=== PATIENT | male | born 1965 | race Caucasian/White ===

== ENCOUNTER 2017-12-15 07:28 | Emergency (ER) | payer OTHER ==
[2017-12-15 08:23] LABS: BASO # 0.1 10^3/uL (0.0-0.2); BASO % 0.5 % (0.0-1.0); EOS # 0.1 10^3/uL (0.0-0.50); EOS % 0.4 % (0.0-3.0); HEMATOCRIT 45.2 % (42.0-52.0); HEMOGLOBIN 15.4 g/dl (13.5-17.5); IMMATURE GRANULOCYTE % 0.4 % (0-3.0); LYMPH # 1.2 10^3/uL (1.5-4.5); LYMPH % 8.7 % (24.0-44.0); MEAN CORPUSCULAR HEMOGLOBIN 30.1 pg (27.0-33.0); MEAN CORPUSCULAR HGB CONC 34.1 g/dl (32.0-36.5); MEAN CORPUSCULAR VOLUME 88.5 fl (80.0-96.0); MONO # 0.8 10^3/uL (0.0-0.8); MONO % 5.9 % (0.0-5.0); NEUTROPHILS # 11.4 10^3/uL (1.8-7.7); NEUTROPHILS % 84.1 % (36.0-66.0); PLATELET COUNT, AUTOMATED 228 10^3/uL (150-450); RED BLOOD COUNT 5.11 10^6/uL (4.30-6.10); RED CELL DISTRIBUTION WIDTH 12.8 % (11.5-14.5); WHITE BLOOD COUNT 13.6 10^3/uL (4.0-10.0)
[2017-12-15] MEDS: NS 1,000 ML IV (08:29)
[2017-12-15 08:35] LABS: ALBUMIN 3.7 GM/DL (3.2-5.2); ALBUMIN/GLOBULIN RATIO 0.93 (1.00-1.93); ALKALINE PHOSPHATASE 59 U/L (45-117); ALT/SGPT 30 U/L (12-78); ANION GAP 7 MEQ/L (8-16); AST/SGOT 13 U/L (7-37); BILIRUBIN,TOTAL 1.2 MG/DL (0.2-1.0); BLOOD UREA NITROGEN 9 MG/DL (7-18); CALCIUM LEVEL 8.8 MG/DL (8.5-10.1); CARBON DIOXIDE LEVEL 26 MEQ/L (21-32); CHLORIDE LEVEL 107 MEQ/L (98-107); CREATININE FOR GFR 1.05 MG/DL (0.70-1.30); GLOMERULAR FILTRATION RATE > 60.0 (>56); GLUCOSE, FASTING 108 MG/DL (70-100); LIPASE 141 U/L (73-393); POTASSIUM SERUM 3.9 MEQ/L (3.5-5.1); SODIUM LEVEL 140 MEQ/L (136-145); TOTAL PROTEIN 7.7 GM/DL (6.4-8.2)
[2017-12-15] MEDS ORDERED: ISOVUE-370 76% 100ML VIAL (Q9967) As Ordered (08:49)
[2017-12-15 09:05] LABS: BILIRUBIN,DIRECT 0.3 MG/DL (0.0-0.2)
[2017-12-15 09:26] LABS: KETONE, URINE AUTO RFX NEGATIVE (NEGATIVE); LEUKOCYTE ESTERASE UR AUTO RFX NEGATIVE (NEGATIVE); NITRITE, URINE AUTO RFX NEGATIVE (NEGATIVE); RBC, URINE AUTO RFX 5 /HPF (0-3); SQUAM EPITHELIAL CELL UR AURFX 0 /HPF (0-6); WBC, URINE AUTO RFX 0 /HPF (0-3)
[2017-12-15] MEDS: metroNIDAZOLE (FLAGYL) 500 MG TAB PO (09:51)
[2017-12-15] MEDS: CIPROFLOXACIN 500 MG TAB PO (09:51)
== END 2017-12-15 10:00 | disposition home or self-care (01) ==
LOC: M ED 07:28
DX: K57.32 Diverticulitis of large intestine without perforation or abscess without bleeding (principal); B02.9 Zoster without complications; M47.816 Spondylosis without myelopathy or radiculopathy, lumbar region; M43.16 Spondylolisthesis, lumbar region
CPT/HCPCS: Q9967

== ENCOUNTER → 2018-12-01 | Outpatient (REF) | payer OTHER ==
[~2018-12-01] MED LIST: CIPR-249 PO; FLAG500T PO; ZOFR4TAB14 PO
[2018-12-01 19:42] LABS: BASO # 0.1 10^3/uL (0.0-0.2); BASO % 1.3 % (0.0-1.0); EOS # 0.1 10^3/uL (0.0-0.5); EOS % 1.9 % (0.0-3.0); HEMATOCRIT 47.1 % (42.0-52.0); HEMOGLOBIN 16.1 g/dl (13.5-17.5); LYMPH # 1.9 10^3/uL (1.5-5.0); LYMPH % 27.4 % (24.0-44.0); MEAN CORPUSCULAR HEMOGLOBIN 30.1 pg (27.0-33.0); MEAN CORPUSCULAR HGB CONC 34.2 g/dl (32.0-36.5); MONO # 0.5 10^3/uL (0.0-0.8); MONO % 6.5 % (0.0-5.0); NEUTROPHILS # 4.3 10^3/uL (1.5-8.5); NEUTROPHILS % 62.6 % (36.0-66.0); PLATELET COUNT, AUTOMATED 234 10^3/uL (150-450); RED BLOOD COUNT 5.35 10^6/uL (4.30-6.10); WHITE BLOOD COUNT 6.9 10^3/uL (4.0-10.0)
[2018-12-01 19:56] LABS: ALBUMIN 4.2 GM/DL (3.2-5.2); ALT/SGPT 31 U/L (12-78); BILIRUBIN,TOTAL 0.9 MG/DL (0.2-1.0); BLOOD UREA NITROGEN 13 MG/DL (7-18); CALCIUM LEVEL 9.1 MG/DL (8.5-10.1); CARBON DIOXIDE LEVEL 24 MEQ/L (21-32); CHLORIDE LEVEL 108 MEQ/L (98-107); CHOLESTEROL LEVEL 240 MG/DL (<200); CHOLESTEROL RISK RATIO 4.444 (<5); CREATININE FOR GFR 0.97 MG/DL (0.70-1.30); GLOMERULAR FILTRATION RATE > 60.0 (>56); GLUCOSE, FASTING 88 MG/DL (70-100); HDL CHOLESTEROL 54 MG/DL (>40); LDL CHOLESTEROL 161 MG/DL (<100); NON-HDL-C 186 MG/DL; POTASSIUM SERUM 4.1 MEQ/L (3.5-5.1); PROSTATIC SPECIFIC AG MONITOR 0.68 NG/ML (< 4.00); SODIUM LEVEL 141 MEQ/L (136-145); TOTAL PROTEIN 7.6 GM/DL (6.4-8.2); TRIGLYCERIDES LEVEL 124 MG/DL (<150)
== END ==
LOC: M LAB REF 18:55
PROVIDERS: ATTEND Family Medicine
DX: K57.90 Diverticulosis of intestine, part unspecified, without perforation or abscess without bleeding (principal); Z82.3 Family history of stroke; Z80.42 Family history of malignant neoplasm of prostate; K40.90 Unilateral inguinal hernia, without obstruction or gangrene, not specified as recurrent; E78.49 Other hyperlipidemia; Z00.00 Encounter for general adult medical examination without abnormal findings

== ENCOUNTER → 2019-01-01 | Outpatient (CLI) | payer OTHER ==
--- NOTE | 2019-01-03 09:53 | ECGEPIP ---
[facility] Test Date: 2019-01-01 Pat Name: SARAHI REYEZ Department: Room: - Gender: Male Catering Chef: NARGIS : 1965 Requested By: Checo Perales Order Number: [id number] Reading MD: Amaury Jauregui Measurements Intervals [place] Rate: 57 P: 37 [place]: 177 QRS: 25 QRSD: 93 T: 32 QT: 389 QTc: 380 Interpretive Statements SINUS BRADYCARDIA NO PRIOR Electronically Signed on 01-03-2019 9:53:00 EDT by Amaury Jauregui
== END ==
LOC: M EKG 09:28
PROVIDERS: ATTEND Anesthesiology
DX: Z01.818 Encounter for other preprocedural examination (principal)

== ENCOUNTER 2019-01-06 07:46 | Day surgery (SDC) | payer OTHER ==
[~2019-01-06] VITALS: Ht 175.3 cm; Wt 88.9 kg
[~2019-01-06 07:46] MED LIST changes: +LR 1,000 ML IV ONE; +ceFAZolin SOD 1 GM in D5W MINI-BAG PLUS 50 ML IV ONE
[2019-01-06] MEDS ORDERED: LACRILUBE (AKWA TEARS) OPHTH OINT 3.5 GM As Ordered ONE (08:26)
[2019-01-06] MEDS ORDERED: ROCURONIUM BROMIDE 50 MG/5 ML VIAL As Ordered ONE ×2 (08:29→10:27)
[2019-01-06] MEDS ORDERED: dexameTHASONE 4 MG/ML 1ML VIAL (J1100) As Ordered ONE (08:29)
[2019-01-06] MEDS ORDERED: LIDOCAINE 2% INJ 100 MG/5 ML SDV (FOR ANES.) As Ordered ONE (08:29)
[2019-01-06] MEDS ORDERED: ONDANSETRON 4MG/2ML VIAL (J2405) As Ordered ONE (08:29)
[2019-01-06] MEDS ORDERED: PROPOFOL 200 MG/20 ML VIAL As Ordered ONE (08:29)
[2019-01-06] MEDS ORDERED: MIDAZOLAM INJ 2 MG/2 ML VIAL (J2250) As Ordered ONE (08:32)
[2019-01-06] MEDS ORDERED: fentaNYL 100 MCG/2 ML INJECTION (J3010) As Ordered ONE ×2 (08:32→10:05)
[2019-01-06] MEDS ORDERED: BUPIVACAINE/EPIN 0.25% 30 ML VIAL As Ordered ONE (09:37)
[2019-01-06] MEDS ORDERED: KETOROLAC 60 MG/2 ML VIAL (J1885) As Ordered ONE (10:14)
[2019-01-06] MEDS ORDERED: SUGAMMADEX SODIUM 500 MG/5 ML VIAL (BRIDION) As Ordered ONE (10:14)
[2019-01-06] MEDS ORDERED: KETAMINE HCL 200 MG/20 ML VIAL As Ordered ONE (10:34)
[2019-01-06] MEDS ORDERED: ACETAMINOPHEN 1000MG 100ML IV BTL (OFIRMEV) (J0131 PER 10MG) As Ordered ONE (10:35)
--- NOTE | 2019-01-06 11:53 | RO ---
DATE OF PROCEDURE: 01/06/2019 PREOPERATIVE DIAGNOSIS: Left inguinal hernia. POSTOPERATIVE DIAGNOSIS: Left inguinal hernia (indirect), and right inguinal hernia (direct). SURGEON: Jung Urbina MD PAY AGENT: Soha Olmos NP. Provided instrument exchange, trocar placement and removal, abdominal wall closure, and mesh placement. ANESTHESIA: General endotracheal anesthesia. PROCEDURE: Robotic-assisted laparoscopic bilateral inguinal hernia repair with ProGrip mesh. ESTIMATED BLOOD LOSS: Minimal. FLUIDS: Crystalloid. DESCRIPTION OF PROCEDURE: The patient was taken to recovery room awake, alert hemodynamic stable. The patient was given general anesthesia and after adequate anesthesia and preoperative antibiotics were given, the patient was prepped and draped in a sterile fashion. Next, a supraumbilical incision was made with skin knife. Blunt dissection was carried down to fascia. Fascia was entered with a Veress needle, insufflated to 15 mm of pressure a dilating 8 mm trocar was placed. Under direct visualization, two lateral 8 mm trocars were placed. The patient was placed in the Trendelenburg position and there were a great deal of adhesions from previous diverticulitis in the left lower quadrant, which were taken down with sharp dissection. Then the peritoneum on the left-hand side was taken down with monopolar scissors after the robot had been docked. In addition, during evaluation, there was an obvious indirect component on the left-hand side, which was reduced and then also a direct component on the right-hand side medial to the epigastric. Thus, the left inguinal area was dissected out with the peritoneum bluntly and eventually this was mobilized out of the inguinal canal. There was also lipoma in the cord that was mobilized and transected at its base left in the preperitoneal space after reinspection. Next, the right inguinal area was dissected out after the Cedrick's ligament on the left-hand side pubis and the vessels were all cleared of peritoneum. The right inguinal area was dissected out first with monopolar cut scissors on the peritoneum, mobilizing a nice peritoneal flap. Once again, there is no evidence of indirect hernia, but there was evidence of a direct hernia. This was relatively small but was mobilized with some blunt dissection and then Cedrick's ligament pubis was seen from the right-hand side. The vessels were nicely seen as well. The mesh was placed in the preperitoneal space on the right-hand side, pressed into position, covering the direct component, as well as the indirect component. The left side was also placed the mesh at this time, covering mostly the indirect component more so than the direct, but both areas were covered nicely. The peritoneum was closed using 3-0 V-Loc on both sides and sutures removed. The abdomen was desufflated after trocars removed under direct visualization. 4-0 Vicryl was used to close all skin incisions. Steri-Strips and a dry sterile dressing were applied. The patient was awakened, extubated, brought to recovery room awake, alert, hemodynamically stable. Sponge and needle counts correct times two.
[2019-01-06] MEDS ORDERED: fentaNYL 100 MCG/2 ML INJECTION (J3010) IV PRN (12:00)
[2019-01-06] MEDS ORDERED: oxyCODONE 5MG TAB PO PRN (12:00)
[2019-01-06] MEDS ORDERED: ONDANSETRON 4MG/2ML VIAL (J2405) IV PRN ×2 (12:00→12:15)
[2019-01-06] MEDS ORDERED: LR 1,000 ML IV SCH ×2 (12:00)
[2019-01-06] MEDS ORDERED: NORCO, ANEXSIA 5/325MG TABLET (HYDROcodone/ACETAMINOPHEN) PO PRN (12:15)
[2019-01-06 14:11] VITALS: BP 134/74
== END 2019-01-06 14:55 | disposition home or self-care (01) ==
LOC: M SDC 07:46
PROVIDERS: ATTEND Surgery
DX: K40.90 Unilateral inguinal hernia, without obstruction or gangrene, not specified as recurrent (principal); K57.92 Diverticulitis of intestine, part unspecified, without perforation or abscess without bleeding; K21.9 Gastro-esophageal reflux disease without esophagitis; K44.9 Diaphragmatic hernia without obstruction or gangrene
CPT/HCPCS: 49650; C1781; J0131; J0690; J1100; J1885; J2250; J2405; J3010

== ENCOUNTER → 2020-06-02 | Outpatient (CLI) | payer BC ==
[~2020-06-02] MED LIST changes: +GASTROGRAFIN SOLUTION 30ML (Q9963) As Ordered ONE; +ISOVUE-370 76% 100ML VIAL As Ordered ONE; -LR 1,000 ML IV ONE; -ceFAZolin SOD 1 GM in D5W MINI-BAG PLUS 50 ML IV ONE
--- NOTE | 2020-06-02 16:02 | REP ---
INDICATION: LLQ PAIN. COMPARISON: None TECHNIQUE: Axial contrast-enhanced images from the lung bases to the pubic symphysis using oral and 100 cc Isovue 370 intravenous contrast material. Precontrast images of the abdomen along with coronal and sagittal reformations obtained. This CT examination was performed using the following dose reduction techniques: Automated exposure control, adjustment of mA and/or kv according to the patient's size, and the use of iterative reconstruction technique. FINDINGS: Fatty infiltration to the liver noted without focal hepatic lesion. Spleen, pancreas, gallbladder, bilateral adrenal glands and kidneys are normal. The enteric system including stomach, small, and large bowel appears normal. No evidence for obstruction or acute inflammatory process. Normal terminal ileum and appendix are identified in the right lower quadrant. Sigmoid diverticula noted without acute diverticulitis. Pelvis demonstrates normal bladder and age-appropriate prostate/seminal vesicles. No ascites. No free air. No intraperitoneal or retroperitoneal adenopathy. Abdominal aorta and vasculature appear normal. Musculoskeletal structures are intact and without acute osseous abnormality. Lung bases are clear. IMPRESSION: No acute abdominopelvic pathology appreciated. Diverticulosis without acute diverticulitis. Hepatosteatosis. <Electronically signed by Boy Oh > 06/02/20 [id number]
== END ==
LOC: M RAD 14:05
PROVIDERS: ATTEND Surgery
DX: K76.0 Fatty (change of) liver, not elsewhere classified (principal); R10.32 Left lower quadrant pain
CPT/HCPCS: 74178; Q9963; Q9967

== ENCOUNTER → 2020-07-13 | Outpatient (CLI) | payer BC ==
[~2020-07-13] MED LIST changes: -GASTROGRAFIN SOLUTION 30ML (Q9963) As Ordered ONE; -ISOVUE-370 76% 100ML VIAL As Ordered ONE
--- NOTE | 2020-07-13 20:47 | ECGEPIP ---
[facility] Test Date: 2020-07-13 Pat Name: SARAHI REYEZ Department: Room: - Gender: Male Booking Agent: JAYA : 1965 Requested By: DANTE Grant Order Number: [id number] Reading MD: Amaury Jauregui Measurements Intervals [place] Rate: 76 P: 42 [place]: 172 QRS: 26 QRSD: 78 T: 45 QT: 374 QTc: 420 Interpretive Statements SINUS RHYTHM NO CHANGE COMPARED TO 01/01/19 Electronically Signed on 07-13-2020 20:47:27 EDT by Amaury Jauregui
== END ==
LOC: M EKG 15:20
PROVIDERS: ATTEND Anesthesiology
DX: Z01.818 Encounter for other preprocedural examination (principal)

== ENCOUNTER → 2020-07-13 | Outpatient (CLI) | payer BC ==
--- NOTE | 2020-07-13 15:25 | REP ---
INDICATION: THORACIC RADICULOPATHY. COMPARISON: None. TECHNIQUE: Sagittal T1, T2, stir, axial T1 and T2 weighted MR images of the thoracic spine are obtained. FINDINGS: There is [id number] multilevel degenerative disc disease with loss of disc height and disc desiccation seen diffusely throughout the thoracic spine. Vertebral heights are overall preserved. No malalignments. On the sagittal T2 weighted images, no limiting canal stenosis. The thoracic cord appears normal in its course, caliber and signal characteristics. On the review of axial images, no significant canal or foraminal narrowing or disc herniation identified. IMPRESSION: Normal examination of the thoracic spine. No fracture or malalignment. No significant canal stenosis or limiting foraminal stenosis. No disc herniation identified. <Electronically signed by Zaheer Faulkner > 07/13/20 1525
== END ==
LOC: M PLARAD 13:27
PROVIDERS: ATTEND Orthopaedic Surgery
DX: M54.14 Radiculopathy, thoracic region (principal)

== ENCOUNTER → 2020-07-17 | Outpatient (CLI) | payer BC | LOC: M LABSMTC 10:04 | PROVIDERS: ATTEND Anesthesiology | DX: Z01.818 Encounter for other preprocedural examination (principal); Z11.52 Encounter for screening for COVID-19 ==

== ENCOUNTER 2020-07-22 11:07 | Day surgery (SDC) | payer BC ==
[~2020-07-22] VITALS: Ht 175.3 cm; Wt 84.8 kg
[~2020-07-22 11:07] MED LIST changes: +LIDOCAINE 1% MDV 20ML VIAL SQ PRN; +LR 1,000 ML IV ONE; +ceFAZolin SOD 2 GM in IV 1 EA IV ONE
[2020-07-22] MEDS ORDERED: fentaNYL 250 MCG/5 ML INJECTION (J3010) As Ordered ONE (12:23)
[2020-07-22] MEDS ORDERED: MIDAZOLAM INJ 2MG/2ML VIAL (J2250 PER 1MG) As Ordered ONE (12:23)
[2020-07-22] MEDS ORDERED: LIDOCAINE 2% 100MG/5ML SDV (FOR ANES.) As Ordered ONE (12:24)
[2020-07-22] MEDS ORDERED: propofoL 200 MG/20 ML VIAL As Ordered ONE (12:24)
[2020-07-22] MEDS ORDERED: KETOROLAC 60MG 2ML VIAL As Ordered ONE (12:24)
[2020-07-22] MEDS ORDERED: dexameTHASONE 4 MG/ML 1ML VIAL (J1100 PER 1MG) As Ordered ONE (12:24)
[2020-07-22] MEDS ORDERED: ONDANSETRON 4MG/2ML VIAL As Ordered ONE (12:24)
[2020-07-22] MEDS ORDERED: ROCURONIUM BROMIDE 50 MG/5 ML VIAL As Ordered ONE ×2 (12:24→13:43)
[2020-07-22] MEDS ORDERED: BUPIVACAINE/EPIN 0.25% 30 ML VIAL As Ordered ONE (12:56)
[2020-07-22] MEDS ORDERED: ACETAMINOPHEN 1000MG 100ML IV BTL (OFIRMEV) (J0131 PER 10MG) As Ordered ONE (13:38)
[2020-07-22] MEDS ORDERED: SUGAMMADEX SODIUM 500 MG/5 ML VIAL (BRIDION) As Ordered ONE (13:41)
[2020-07-22] MEDS ORDERED: GLYCOPYRROLATE INJ 0.2 MG/ML 2 ML VIAL As Ordered ONE (13:49)
[2020-07-22] MEDS ORDERED: fentaNYL 100 MCG/2 ML INJECTION (J3010) As Ordered ONE (16:11)
[2020-07-22] MEDS ORDERED: LR 1,000 ML IV SCH ×2 (16:15→16:20)
[2020-07-22] MEDS ORDERED: ONDANSETRON 4MG/2ML VIAL IV PRN (16:15)
[2020-07-22] MEDS ORDERED: fentaNYL 100 MCG/2 ML INJECTION (J3010) IV PRN (16:15)
[2020-07-22] MEDS ORDERED: oxyCODONE 5MG TAB PO PRN (16:15)
[2020-07-22] MEDS ORDERED: NORCO, ANEXSIA 5/325MG TABLET (HYDROcodone/ACETAMINOPHEN) PO PRN (16:20)
[2020-07-22 17:50] VITALS: BP 126/81
[2020-07-22] MEDS ORDERED: KETOROLAC 30 MG/ML 1ML VIAL IV SCH (19:00)
[2020-07-22] MEDS ORDERED: HYDR-3715 PO (19:39)
--- NOTE | 2020-07-23 09:11 | RO ---
OPERATIVE NOTE DATE OF OPERATION: 07/22/2020 PREOPERATIVE DIAGNOSIS: Recurrent left inguinal hernia. POSTOPERATIVE DIAGNOSIS: Recurrent left inguinal hernia. PROCEDURE: Robotic-assisted left inguinal hernia repair with ProGrip mesh. SURGEON: Jnug Urbina Jr, MD LUMP RECEIVER: Soha Olmos (provided trocar placement, instrument exchange, mesh placement, abdominal wall closure). ANESTHESIA: General endotracheal anesthesia. EBL: Minimal. FLUIDS: Crystalloid. DESCRIPTION OF PROCEDURE: The patient was brought to the operating room and was given general anesthesia. After adequate anesthesia and preoperative antibiotics were given the patient was prepped and draped in usual sterile fashion. A supraumbilical incision was made with skin knife, blunt dissection was carried down to fascia and Veress needle placed into the abdominal cavity and insufflated to 15 mm of pressure. A dilating 8 mm trocar was placed and under direct visualization a right-sided 8 mm and left-sided 8 mm trocars were placed. The patient was placed in deep Trendelenburg position and the patient was evaluated in the pelvis and specifically the sigmoid colon was adherent to the left lower quadrant and there were some adhesions in the left lower quadrant where the patient had some previous diverticulitis episodes. At this point the adhesions were taken down to omentum up in this area and then the sigmoid colon was mobilized off the left inguinal area and it actually was right at the level of the internal ring where the sigmoid colon was adherent to. In any case, at this point, the colon was mobilized using sharp dissection as well as minimal blunt dissection. The colon itself needed to be mobilized off the pelvic sidewall in this area. Once this was performed I could see the mesh was intact, it was hard to tell whether there was a direct or indirect component but what was concerning me was that I did not see the mesh below the level of the internal ring and lateral to this, it may be that there would be thickened peritoneum and over the medial aspect I was not able to see the mesh and thus I felt that the preperitoneal approach was appropriate. Incision was made in the peritoneum and peritoneum mobilized using scissors and monopolar scissors as well as blunt dissection, sharp dissection, and eventually the peritoneum was mobilized off the mesh in this area. Specifically, medially and then along the mesh itself and eventually once this was nicely mobilized when I was able to make it down to the level of the internal ring and the cord structures there was a great deal of fatty tissue present and it was such that this was mobilized to some extent and I was appreciating a lipoma of the cord in this area and the mesh looked as though it had folded up on itself in this area consistent with what is called a taco type of situation. In any case, medial to the epigastrics, however, the mesh was down into the pelvis and along Cedrick's area. Once all of this area was dissected down nicely and two small lipomas of the cord were appreciated, then I was able to visualize relatively moderate size indirect hernia. No other hernias were appreciated. Thus a ProGrip mesh was cut to the appropriate size. Because of its problem with recurrence which was probably that the cord structures were elevating the mesh in this area, I then split the ProGrip mesh and placed this around the cord structures and this did cover the area nicely and then the peritoneum was closed over the top for this peritoneal closure. However, where the sigmoid colon had been mobilized there was enough of a peritoneal defect that it was not coming together well and I felt that it needed to be covered better and to avoid any bowel going into the preperitoneal space. Thus, I did suture the edge of the peritoneal rent down to the edge of the mesh and then placed some Interceed over the top of this. The trocars were then removed under direct visualization. 4-0 Vicryl was used to close all skin incisions. Steri-Strips and dry, sterile dressing was applied. The patient was awakened from his sedation and brought to the recovery room awake, alert and hemodynamically stable. Sponge and needle counts correct x2.
== END 2020-07-22 17:55 | disposition home or self-care (01) ==
LOC: M SDC 11:07
PROVIDERS: ATTEND Surgery
DX: K40.91 Unilateral inguinal hernia, without obstruction or gangrene, recurrent (principal); K21.9 Gastro-esophageal reflux disease without esophagitis; K57.92 Diverticulitis of intestine, part unspecified, without perforation or abscess without bleeding; K44.9 Diaphragmatic hernia without obstruction or gangrene
CPT/HCPCS: 49651; C1781; J0131; J0690; J1100; J1885; J2250; J2405; J3010; S2900

== ENCOUNTER 2021-07-29 10:50 | Emergency (ER) | payer BC ==
[~2021-07-29] VITALS: Ht 175.3 cm; Wt 86.6 kg
[~2021-07-29 10:50] MED LIST changes: +HYDR-3715 PO; -LIDOCAINE 1% MDV 20ML VIAL SQ PRN; -LR 1,000 ML IV ONE; -ceFAZolin SOD 2 GM in IV 1 EA IV ONE
[2021-07-29] MEDS ORDERED: NS 1,000 ML IV ONE (12:05)
[2021-07-29 13:05] LABS: BASO # 0.1 10^3/uL (0.0-0.2); BASO % 0.6 % (0.0-1.0); EOS # 0.1 10^3/uL (0.0-0.5); EOS % 1.1 % (0.0-3.0); HEMATOCRIT 46.1 % (42.0-52.0); HEMOGLOBIN 15.7 g/dl (13.5-17.5); LYMPH # 1.5 10^3/uL (1.5-5.0); LYMPH % 14.7 % (24.0-44.0); MEAN CORPUSCULAR HEMOGLOBIN 30.3 pg (27.0-33.0); MEAN CORPUSCULAR HGB CONC 34.1 g/dl (32.0-36.5); MONO # 0.6 10^3/uL (0.0-0.8); MONO % 6.3 % (2.0-8.0); NEUTROPHILS # 7.7 10^3/uL (1.5-8.5); PLATELET COUNT, AUTOMATED 217 10^3/uL (150-450); RED BLOOD COUNT 5.18 10^6/uL (4.30-6.10)
[2021-07-29] MEDS ORDERED: ISOVUE-370 76% 100ML VIAL As Ordered ONE (13:05)
[2021-07-29 13:35] LABS: ALBUMIN 3.9 GM/DL (3.2-5.2); BILIRUBIN,DIRECT 0.2 MG/DL (0.0-0.2); BILIRUBIN,TOTAL 0.9 MG/DL (0.2-1.0); TOTAL PROTEIN 7.4 GM/DL (6.4-8.2)
[2021-07-29] MEDS ORDERED: CIPR-249 PO (13:59)
[2021-07-29] MEDS ORDERED: METR-265 PO (13:59)
[2021-07-29] MEDS ORDERED: CIPROFLOXACIN 500MG TABLET PO ONE (14:00)
[2021-07-29] MEDS ORDERED: metroNIDAZOLE (FLAGYL) 500MG TABLET PO ONE (14:00)
[2021-07-29 14:08] VITALS: BP 154/90
== END 2021-07-29 14:17 | disposition home or self-care (01) ==
LOC: M ED 10:50
DX: K57.32 Diverticulitis of large intestine without perforation or abscess without bleeding (principal)
CPT/HCPCS: 74177; 80047; 80076; 83690; 85025; 96360; 99284; Q9967

== ENCOUNTER → 2022-01-28 | Outpatient (CLI) | payer BC ==
[~2022-01-28] MED LIST changes: +METR-265 PO
== END ==
LOC: M LABSMTC 10:14
PROVIDERS: ATTEND Anesthesiology
DX: Z01.812 Encounter for preprocedural laboratory examination (principal)

== ENCOUNTER 2022-01-30 12:44 | Day surgery (SDC) | payer BC ==
[~2022-01-30] VITALS: Ht 175.3 cm; Wt 85.7 kg
[~2022-01-30 12:44] MED LIST changes: +NS 1,000 ML IV ONE
[2022-01-30] MEDS ORDERED: propofoL 200 MG/20 ML VIAL As Ordered ONE (13:12)
[2022-01-30] MEDS ORDERED: LIDOCAINE 2% 100MG/5ML SDV (FOR ANES.) As Ordered ONE (13:12)
[2022-01-30 14:16] VITALS: BP 113/67
== END 2022-01-30 14:18 | disposition home or self-care (01) ==
LOC: M OPP 12:44
PROVIDERS: ATTEND Surgery
DX: Z12.11 Encounter for screening for malignant neoplasm of colon (principal); Z86.010 Personal history of colon polyps; K57.30 Diverticulosis of large intestine without perforation or abscess without bleeding

== ENCOUNTER → 2022-04-19 | Outpatient (CLI) | payer BC ==
[~2022-04-19] MED LIST changes: -NS 1,000 ML IV ONE
== END ==
LOC: M LABSMTC 09:07
PROVIDERS: ATTEND Nurse Practitioner Family
DX: Z11.52 Encounter for screening for COVID-19 (principal)